=== PATIENT | female | born 2000 | race Hispanic/Latino ===

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

== ENCOUNTER 2023-09-27 22:08 | Emergency (ER) | payer SELFPAY ==
--- NOTE | ~2023-09-27 | CT_ITS ---
EXAMINATION: CT abdomen pelvis wo con DATE: 09/27/2023 23:00 INDICATION: RLQ ABD PAIN, VOMITING X 1 HR. HX OF APPENDECTOMY 12 YRS AGO TECHNIQUE: Computed tomography (CT) of the abdomen and pelvis was performed without intravenous contr ast. Automated exposure control and iterative reconstruction technique were employed. The dose-length product was 165.23 mGy-cm. COMPARISON: None. FINDINGS: Lower thorax: Unremarkable Liver: Normal. Biliary/Gallbladder: Gallbladder is normal. No bile duct dilation. Pancreas: No mass or duct dilation. Spleen: Normal. Adrenals:No mass. Kidneys: No suspicious mass or obstructing stone. Mild right pelviectasis and ureterectasis. GI tract: No small or large bowel dilation. Status post appendectomy. Mesentery/Peritoneum: No ascites, mass, or free air. Retroperitoneum: No mass. Pelvis: Empty urinary bladder. Retroverted uterus. IUD in good position. Ovaries not confidently iden tified. Physiologic free fluid. Soft Tissues: Soft tissues and body wall unremarkable. Bones: No acute osseous finding. IMPRESSION: Mild right pelviectasis and ureterectasis without evidence of obstructive uropathy. Correlate with ur inalysis. Consider ascending infection/pyelonephritis in the differential. Reviewed, dictated and finalized at location K. IMPRESSION: Mild right pelviectasis and ureterectasis without evidence of obstructive uropa thy. Correlate with urinalysis. Consider ascending infection/pyelonephritis in the differential.
[2023-09-27 22:15] VITALS: BP 120/92; PULSE 65; RESP 16; TEMP 37.1; O2SAT 100
--- NOTE | 2023-09-27 22:18 | ED.ABDPAIN ---
HPI - Abdominal Pain General Chief Complaint: Abdominal Pain Stated Complaint: R side Pain Time Seen by Provider: 09/27/23 22:14 Source: patient Mode of arrival: ambulatory Limitations: no limitations History of Present Illness HPI narrative: patient is a 22-year-old female with right lower quadrant pain today. She has associated nausea. She is getting ready to start her menstrual cycle at this time. MD elicited complaint: abdominal pain ( right lower quadrant ( appendectomy prior) IUD present) Pertinent past history: none Onset (ago): hour(s) (3) Pain Consistency: constant Location: RLQ Severity: moderate Pain scale (0-10): 6 Quality: cramping and sharp Radiation: none Migration to: no migration Exacerbating factors: nothing Relieving factors: nothing Associated symptoms: nausea Related Data Patient : No Home Medications Medication Instructions Recorded Confirmed No Home Medications 09/27/23 09/27/23 Allergies Allergy/AdvReac Type Severity Reaction Status Date / Time lactose Allergy Diarrhea Verified 09/27/23 22:54 Review of Systems Review of Systems: All systems reviewed & are unremarkable except as noted in HPI and below Constitutional: Constitutional: Reports no additional constitutional complaints Eyes: Eyes: Reports no additional eye complaints ENT: Reports system reviewed and no additional complaints, except as documented Cardiovascular: Cardiovascular: Reports no additional cardiovascular complaints Respiratory: Respiratory: Reports no additional respiratory complaints Gastrointestinal: Gastrointestinal: Reports no additional gastrointestinal complaints Genitourinary: Genitourinary: Reports no additional female genitourinary complaints Musculoskeletal: Musculoskeletal: Reports no additional musculoskeletal complaints Integumentary/Breasts: Skin/Breast: Reports system reviewed and no additional complaints, except as docu Neurologic: Reports system reviewed and no additional complaints, except as documented Psychiatric: Psychiatric: Reports no additional psychiatric complaints Endocrine: Endocrine: Reports no additional endocrine complaints Hematologic/Lymphatic: Hematologic/Lymphatic: Reports no additional hematologic/lymphatic complaints Allergic/Immunologic: Allergic/Immunologic: Reports no additional allergic/immunologic complaints PMFSH Past Medical History Medical History Patient denies medical problems Surgical History Surgical History Status post appendectomy Exam Const: General: healthy appearing Nutritional Appearance: well nourished Orientation/consciousness: patient oriented x3 HENMT: Head: normal to inspection Ears: external ears normal Face/Nose/Sinus: Normal external nose present Eyes: Conjunctivae: conjunctivae normal Pupils: Equal, round and reactive pupils present EOM: EOMs intact bilaterally Neck: Neck: normal visual inspection Chest: Chest palpation & inspection: normal inspection of the chest Resp: Effort & Inspection: normal respiratory effort and not labored Auscultation: clear to auscultation bilaterally Cardio: Rate: regular rate Rhythm: regular rhythm Heart sounds: no murmurs GI: Inspection: non-distended GI Palp: Yes Soft to palpation, Yes Tenderness to palpation present (GI) ( right lower quadrant; appendix signs are negative and she had appendectomy), Yes Guarding due to palpation present (GI) ( right lower quadrant), No Rigid due to palpation, No Hernia present, No Palpable mass present and No Rebound tenderness present Auscultation: normal bowel sounds : General: Yes bladder normal to palpation Back/Spine/Pelvis: Back: no CVA tenderness Skin: General skin exam: normal color Rashes: no rashes Wounds: no wounds Neuro: General: patient oriented x3 Cranial nerves: Yes Nystagmus not present Speech: normal sp
[2023-09-27 22:36] LABS: Basophils Absolute Auto 0.05 K/mm3 (0.00-0.10); Basophils Percent Auto 0.7 % (0.0-1.0); Eosinophils Absolute Auto 0.16 K/mm3 (0.02-0.50); Eosinophils Percent Auto 2.2 % (1.0-6.0); Hematocrit 34.3 % (35.0-49.0); Hemoglobin 11.4 g/dL (12.0-15.0); Immature Granulocyte Absolute 0.02 K/mm3 (0.00-0.00); Immature Granulocyte Percent A 0.3 % (0.0-0.0); Lymphocytes Absolute Auto 2.66 K/mm3 (1.10-4.50); Lymphocytes Percent Auto 36.2 % (18.0-42.0); Mean Corpuscular HGB Conc 33.2 g/dL (32-36); Mean Corpuscular Hemoglobin 29.1 pg (27.0-31.0); Mean Corpuscular Volume 87.5 fL (78.0-102.0); Mean Platelet Volume 9.3 fl (9.2-11.8); Monocytes Absolute Auto 0.51 K/mm3 (0.10-0.90); Monocytes Percent Auto 6.9 % (2.0-11.0); Neutrophils Absolute Auto 3.95 K/mm3 (1.70-7.20); Neutrophils Percent Auto 53.7 % (50.0-70.0); Platelet Count Result 389 K/mm3 (150-420); Red Blood Count 3.92 M/mm3 (4.20-5.40); Red Cell Distribution Width 12.4 % (11.6-14.4); White Blood Count 7.4 K/mm3 (4.8-10.8)
[2023-09-27 22:38] LABS: Appearance Urine Clear (Clear); Bilirubin Urine 1+ (Negative); Blood Urine 3+ (Negative); Color Urine Yellow (Yellow); Glucose Urine UA Negative (Negative); Ketones Urine Negative (Negative); Leukocyte Esterase Ur Negative LEU/UL (Negative); Nitrate Urine Negative (Negative); Protein Urine 1+ (Negative); Specific Grav Ur >= 1.030 (1.010-1.020)
[2023-09-27 22:40] LABS: Pregnancy On Board Control Positive; Urine Pregnancy Test Negative
[2023-09-27 22:57] LABS: Alanine Aminotransferase 15 U/L (14-59); Albumin Level 4.2 g/dL (3.4-5.0); Alkaline Phosphatase 67 U/L (46-116); Anion Gap 10 mmol/L (4-12); Aspartate Amino Transferase 12 U/L (15-37); Bilirubin,Total 0.6 mg/dL (0.00-1.00); Blood Urea Nitrogen 11 mg/dL (7-18); Calcium 8.6 mg/dL (8.5-10.1); Carbon Dioxide 26 mmol/L (21-32); Chloride 104 mmol/L (98-108); Estimated Glomerular Filt Rate > 60; Glucose 106 mg/dL (70-99); Lipase 26 U/L (16-77); Osmolality Calculated 289 mOsm/kg (285-295); Potassium 3.4 mmol/L (3.5-5.1); Sodium 140 mmol/L (136-145); Total Protein 7.7 g/dL (6.4-8.2)
[2023-09-27 23:03] LABS: Add Urine Microscopic? YES; Bacteria Urine Trace /hpf; RBC Urine >75 /hpf (0-2); Squamous Epithelial Cell Urine Occasional /hpf (Few); WBC Urine 0-3 /hpf (0-3)
[2023-09-27] MEDS: ONDANSETRON INJ 4 MG/2 ML VIAL IV PUSH (23:14)
[2023-09-27] MEDS: POTASSIUM CHLORIDE 20 MEQ ER TABLET PO (23:16)
--- NOTE | 2023-09-27 23:19 | PC.NURSE ---
Pt medicated as ordered. Additional warm blanket provided. Boyfriend at bedside. Pt watching [place] channel without new complaint at this time. Updated on timeframe of imaging results.
[2023-09-27] MEDS: levoFLOXacin 750 MG/D5W 150 ML 750 MG/150 ML BAG 100 MG IVPB (23:46)
--- NOTE | 2023-09-27 23:46 | PC.NURSE ---
PT had emesis following KCL administration. ERP has returned to bedside and will re-dose KCL and give additional Zofran and pain medication.
[2023-09-28] MEDS: MORPHINE SULFATE (*CRX) 2 MG/ML INJ IV PUSH (00:23)
[2023-09-28] MEDS: ONDANSETRON INJ 4 MG/2 ML VIAL IV PUSH (00:23)
[2023-09-28] MEDS: POTASSIUM BICARBONATE 25 MEQ TABEF PO (00:28)
[2023-09-28 00:30] VITALS: BP 104/77; PULSE 74; RESP 14; O2SAT 99
[2023-09-28 01:24] VITALS: BP 108/66; PULSE 88; RESP 16; TEMP 36.9; O2SAT 100
[2023-09-30 08:24] LABS: Chlamydia trachomatis NOT DETECTED (NOT DETECTE); Neisseria gonorrhoeae PCR NOT DETECTED (NOT DETECTE)
== END 2023-09-28 01:24 | disposition home or self-care (01) ==
PROVIDERS: Emergency Provider Emergency Medicine; PCP Physician Assistant
DX: N12 Tubulo-interstitial nephritis, not specified as acute or chronic (principal)
CPT/HCPCS: 36415; 74176; 80053; 81001; 81025; 83690; 85025; 87491; 87591; 96365; 96374; 96375; 99284; A9270; J1956; J2270; J2405